=== PATIENT | female | born 1955 | race Caucasian/White ===

== ENCOUNTER → 2016-11-09 | Outpatient (CLI) | payer OTHER | LOC: FIMAGING 11:17 | PROVIDERS: ATTEND Family Medicine | DX: Z12.31 Encounter for screening mammogram for malignant neoplasm of breast (principal); Z80.3 Family history of malignant neoplasm of breast | CPT/HCPCS: G0202 ==

== ENCOUNTER 2017-12-07 08:34 | Day surgery (SDC) | payer OTHER ==
--- NOTE | 2017-11-24 09:13 | CPEKG ---
Test Reason : preop Blood Pressure : / mmHG Vent. Rate : 089 BPM Atrial Rate : 089 BPM P-R Int : 136 ms QRS Dur : 070 ms QT Int : 396 ms P-R-T Axes : 034 -14 067 degrees QTc Int : 482 ms SINUS RHYTHM Confirmed by Mandeep Warren ([id number]) on 11/24/2017 9:13:32 AM Referred By: Confirmed By:Mandeep Warren
[2017-12-07] MEDS ORDERED: LR 1,000 ML IV ONE (08:49)
[2017-12-07] MEDS ORDERED: LIDOCAINE 1% 2 ML INJ ID PRN (08:49)
--- NOTE | 2017-12-07 09:49 | PDGENHP ---
History & Physical Chief Complaint: Diarrhea. FH colon cancer History of Present Illness: Chronic diarrhea. Family history of colon cancer Pertinent Past, Social, Family History: FH: colon cancer. PMH: Palpitations. Obesity. SH: Remote tobacco use Relevant Physical Exam: NAD. CTA B/L. RRR without m/r/g. GI soft. Obese. NABS. NT/ND Cardiorespiratory Assessment: Colonoscopy. MAC. ASA II
[2017-12-07] MEDS ORDERED: PROMETHAZINE HCL 25 MG/ML INJ IVP PRN (09:56)
[2017-12-07] MEDS ORDERED: ONDANSETRON 4 MG/2 ML VIAL IVP PRN (09:56)
[2017-12-07] MEDS ORDERED: fentaNYL 100 MCG/2 ML INJ IVP PRN (09:56)
[2017-12-07] MEDS ORDERED: ALBUTEROL 3 ML DEYVIAL IH PRN (09:56)
[2017-12-07] MEDS ORDERED: DEXAMETHASONE 4 MG/ML VIAL IVP PRN (09:56)
[2017-12-07] MEDS ORDERED: LR 500 ML IV PRN (09:56)
[2017-12-07] MEDS ORDERED: NALOXONE HCL 0.4 MG/ML INJ IVP PRN (09:56)
--- NOTE | 2017-12-07 09:56 | PDANEPAE ---
ANE Past Medical History - Cardiovascular History Hx Hypertension: No Hx Arrhythmias: Yes Hx Chest Pain: No Hx Coronary Artery / Peripheral Vascular Disease: Yes Hx CHF / Valvular Disease: No Hx Palpitations: Yes Cardiovascular History Comment: irregular heartbeat when menopausal but has since stopped. Hyperlipidemia - Pulmonary History Hx COPD: No Hx Asthma/Reactive Airway Disease: Yes Hx Recent Upper Respiratory Infection: No Hx Oxygen in Use at Home: No Hx Sleep Apnea: No Sleep Apnea Screening Result - Last Documented: Negative Pulmonary History Comment: Mild asthma, states is exertional and was worse when younger. Does sometimes have s/s with seasonal allergies -inhaler as needed. - Neurologic History Hx Cerebrovascular Accident: No Hx Seizures: No Hx Dementia: No Neurologic History Comment: Numbness R hand. - Endocrine History Hx Diabetes: No - Renal History Hx Renal Disorders: No Renal History Comment: Chronic UTIs, last 2012. - Liver History Hx Hepatic Disorders: No - Neurological & Psychiatric Hx Hx Neurological and Psychiatric Disorders: Yes Neurological / Psychiatric History Comment: Depression, anxiety - Cancer History Hx Cancer: No - Congenital Disorder History Hx Congenital Disorders: No - GI History Hx Gastrointestinal Disorders: Yes Gastrointestinal History Comment: GERD. chronic diarrhea - Other Health History Other Health History: osteoarthritis. bruises easily - Chronic Pain History Chronic Pain: Yes (osteoarthritic pain) - Surgical History Prior Surgeries: Bilat TKA's. Bilat. cataract removal. carpel tunnel right wrist. T&A as child ANE Review of Systems Review of Systems: - Exercise capacity METS (RN): 3 METS ANE Patient History - Allergies Allergies/Adverse Reactions: adhesive tape Allergy (Verified 11/20/17 15:46) blisters levofloxacin [From Levaquin] Allergy (Verified 11/20/17 15:46) anxiety, dizziness, nightmares thimerosal [Thimerosal] Allergy (Verified 11/20/17 15:46) EYE SCLERA RED/ FROM INJECTION EDEMA walnut Allergy (Verified 11/20/17 15:46) blisters on tongue - Home Medications Home medications: home medication list seen and reviewed Home Medications: Esomeprazole Magnesium [Nexium] 07/14/14 [Last Taken 07/29/14 06:30] Glucosam HCl/MSM/Chondro Castillo A [[facility] [id number] CPLT] 07/14/14 [Last Taken 07/22/14] Multivitamins [Multivitamin (*)] 07/14/14 [Last Taken 07/22/14] Sertraline HCl [Zoloft 100mg (*)] 07/14/14 [Last Taken 07/29/14 06:30] Zolpidem Tartrate [Ambien 10 mg] PRN 07/14/14 [Last Taken 07/28/14 21:00] Albuterol Sulfate [Albuterol Inhaler Hfa] PRN 07/16/14 [Last Taken 07/11/14] Calcium Carbonate [Oyster Shell Calcium 500 mg (*)] 07/16/14 [Last Taken ] Rosuvastatin Calcium [Crestor] 07/16/14 [Last Taken 07/29/14 06:30] Vitamin D3 11/20/17 [Last Taken Unknown] - NPO status NPO Since - Liquids (Date): 12/07/17 NPO Since - Liquids (Time): 05:00 NPO Since - Solids (Date): 12/06/17 NPO Since - Solids (Time): 16:00 - Anes Hx Anes Hx: no prior problems - Smoking Hx Smoking Status: Former smoker - Family Anes Hx Family Hx Anesthesia Complications: none ANE Labs/Vital Signs - Vital Signs Blood Pressure: 139/88 Heart Rate: 87 Respiratory Rate: 18 O2 Sat (%): 94 Height: 162.56 cm Weight: 90.718 kg ANE Physical Exam - Airway Neck exam: FROM Mallampati Score: Class 3 Mouth exam: normal dental/mouth exam - Pulmonary Pulmonary: no respiratory distress, no rales or rhonchi, clear to auscultation - Cardiovascular Cardiovascular: regular rate and rhythym, no murmur, rub, or gallop - ASA Status ASA Status: II ANE Anesthesia Plan Anesthesia Plan: MAC
[2017-12-07] MEDS ORDERED: PROPOFOL 200 MG/20 ML VIAL ONE ×2 (09:57→10:16)
[2017-12-07] MEDS ORDERED: LIDOCAINE 2% 5 ML SDV ONE (10:08)
--- NOTE | 2017-12-07 10:23 | GIREPORT ---
[facility] Surgical Services - Endoscopy Department Patient Name: Avani Delgado Procedure Date: 12/07/2017 9:53 AM Patient Type: Outpatient Attending / ER Physician: Nathan Marquez MD Procedure: Colonoscopy Indications: Chronic diarrhea Providers: Nathan Marquez MD Medicines: Propofol per Anesthesia Complications: No immediate complications. Description of Procedure: After obtaining informed consent, the scope was passed under direct vis ion. Throughout the procedure, the patient's blood pressure, pulse, and oxyg en saturations were monitored continuously. The Colonoscope with irrigatio n channel was introduced through the anus and advanced to the cecum, identified by appendiceal orifice and ileocecal valve. The colonoscopy was performed without difficulty. The patient tolerated the procedure well. The quality of the bowel preparation was excellent. The ileocecal valve, appendiceal orifice, and rectum were photographed. Findings: The perianal and digital rectal examinations were normal. Pertinent negatives include normal sphincter tone and no palpable rectal lesions. A 4 mm polyp was found in the cecum. The polyp was sessile. The polyp w as removed with a cold biopsy forceps. Resection and retrieval were comple te. Two sessile polyps were found in the sigmoid colon. The polyps were 3 t o 4 mm in size. These polyps were removed with a cold biopsy forceps. Resec tion and retrieval were complete. Multiple small-mouthed diverticula were found in the sigmoid colon. Normal mucosa was found from rectum to cecum. Biopsies for histology we re taken with a cold forceps from the right colon and left colon for evalu ation of microscopic colitis. Estimated Blood Loss: Estimated blood loss: none. Post Op Diagnosis: - One 4 mm polyp in the cecum, removed with a cold biopsy forceps. Rese cted and retrieved. - Two 3 to 4 mm polyps in the sigmoid colon, removed with a cold biopsy forceps. Resected and retrieved. - Diverticulosis in the sigmoid colon. - Normal mucosa from rectum to cecum. Biopsied. Recommendation: - Await pathology results. - Repeat colonoscopy in 5 years for surveillance. - Resume previous diet. - Continue present medications. - Patient has a contact number available for emergencies. The signs and symptoms of potential delayed complications were discussed with the pat ient. Return to normal activities tomorrow. Written discharge instructions we re provided to the patient. - Thank you for allowing me to be involved in the care of your patient. Attending Participation: I personally performed the entire procedure without the assistance of a fellow, resident or surg ical bankruptcy legal assistant. Nathan Marquez MD Nathan Marquez MD 12/07/2017 10:23:06 AM This report has been signed electronicallyDavid MD [place] Number of Addenda: 0 Note Initiated On: 12/07/2017 9:53 AM Total Procedure Duration Time 0 hours 13 minutes 2 seconds [email or web address]
--- NOTE | 2017-12-07 10:27 | POSTANESTH ---
Post Anesthetic Evaluation Cardiovascular Status: Normal, Stable, Similar to Pre-Op Cond Respiratory Status: Normal, Stable, Similar to Pre-op Cond. Level of Consciousness/Mental Status: Can Participate in Eval, Alert and Oriented Pain Control: Adequate, Prn Tx Ordered Nausea/Vomiting Control: Adequate, Prn Tx Ordered Complications Possibly Related to Anesthesia: None Noted
[2017-12-07 11:10] VITALS: BP 128/78
== END 2017-12-07 11:10 | disposition home or self-care (01) ==
LOC: FSGY 08:34
PROVIDERS: ATTEND Internal Medicine Gastroenterology
DX: D12.0 Benign neoplasm of cecum (principal); D12.5 Benign neoplasm of sigmoid colon; K52.9 Noninfective gastroenteritis and colitis, unspecified
CPT/HCPCS: J2704

== ENCOUNTER → 2018-03-14 | Outpatient (CLI) | payer OTHER | LOC: FIMAGING 09:30 | PROVIDERS: ATTEND Family Medicine | DX: Z12.31 Encounter for screening mammogram for malignant neoplasm of breast (principal); Z80.3 Family history of malignant neoplasm of breast; R92.8 Other abnormal and inconclusive findings on diagnostic imaging of breast ==

== ENCOUNTER → 2018-03-27 | Outpatient (CLI) | payer OTHER | LOC: CIMAGING 13:25 | PROVIDERS: ATTEND Family Medicine | DX: R92.8 Other abnormal and inconclusive findings on diagnostic imaging of breast (principal) ==